=== PATIENT | female | born 1950 | race Two or more races ===

== ENCOUNTER 2021-01-25 22:37 | Emergency (ER) | payer OTHER ==
[~2021-01-25] VITALS: Ht 162.6 cm; Wt 90.7 kg
[2021-01-25] MEDS ORDERED: ALPRAZOLAM OD0.25 MG PO (22:53)
[2021-01-25] MEDS ORDERED: PAROXETINE7.5 MG PO (22:54)
[2021-01-26] MEDS ORDERED: DICLOFENAC SODI50 MG PO (01:16)
== END 2021-01-26 01:19 | disposition home or self-care (01) ==
LOC: ER 22:37
DX: G89.11 Acute pain due to trauma (principal); M25.561 Pain in right knee

== ENCOUNTER 2023-01-31 15:07 | Emergency (ER) | payer OTHER ==
[~2023-01-31] VITALS: Ht 162.6 cm; Wt 90.7 kg
[~2023-01-31 15:07] MED LIST: ALPRAZOLAM OD0.25 MG PO; DICLOFENAC SODI50 MG PO; PAROXETINE7.5 MG PO
[2023-01-31] MEDS ORDERED: TOPROL XL25 M1 PO (15:23)
[2023-01-31] MEDS ORDERED: ELIQUIS5 MG PO (15:23)
[2023-01-31] MEDS ORDERED: PAXIL30 MG PO (15:24)
[2023-01-31] MEDS ORDERED: ZITHROMAX500 MG PO (18:23)
[2023-01-31] MEDS ORDERED: PROAIR RESPICL90 MCG IH (18:23)
[2023-01-31] MEDS ORDERED: TUSNEL LIQUID178 ML PO (18:23)
[2023-01-31] MEDS ORDERED: MEDROLPACK PO (18:23)
== END 2023-01-31 18:41 | disposition home or self-care (01) ==
LOC: ER 15:07
DX: J06.9 Acute upper respiratory infection, unspecified (principal); Z20.822 Contact with and (suspected) exposure to COVID-19; I10 Essential (primary) hypertension